=== PATIENT | male | born 1970 | race Two or more races ===

== ENCOUNTER 2023-04-12 11:21 | Outpatient (OUT) | payer OTHER, SELFPAY ==
--- NOTE | 2023-04-12 11:32 | XR_ITS ---
The [address] [address] Patient Name: ADELE WONG MRN: [id number] date: 1970 Sex: M Assigned Patient Location: [facility] Current Patient Location: Accession/Order Number: [id number] Exam Date: 04/12/2023 12:08 Report Date: 04/13/2023 07:42 At the request of: BLANK MUÑOZ Procedure: XR wrist LT 2V PROCEDURE: XR wrist LT 2V COMPARISON: None. HISTORY: Nondisplaced Fracture Of Left radial Styloid Process FINDINGS: BONES:No definite fracture or dislocation identified on the current exam. Degenerative changes with marginal osteophyte formation most significant in the medial carpus SOFT TISSUES:Negative. No visible soft tissue swelling. EFFUSION:None visible. OTHER: Bone details obscured by an overlying fiberglass cast XR/XR wrist LT 2V IMPRESSION: No definite fracture observed Electronically authenticated by: YANET GARCIA Date: 04/13/2023 07:42
== END 2023-04-12 11:22 | disposition home or self-care (01) ==
LOC: RAD 11:26
PROVIDERS: Visit Provider Orthopaedic Surgery
DX: S52.515A Nondisplaced fracture of left radial styloid process, initial encounter for closed fracture (principal); S62.002D Unspecified fracture of navicular [scaphoid] bone of left wrist, subsequent encounter for fracture with routine healing
CPT/HCPCS: 73100